=== PATIENT | male | born 1975 | race Two or more races ===

== ENCOUNTER 2023-02-22 16:19 | Outpatient (AMB) | payer OTHER, SELFPAY ==
--- NOTE | 2023-02-22 16:21 | MHC.OFFWIV ---
Intake Vital Signs 02/22/23 16:23 Weight 195 lb BP 110/72 Blood Pressure Location Rt brachial Position Sitting Pulse 77 Pulse Source Pulse Oximeter Temp 97.7 F Temp Source Temporal Artery Scan Pulse Oximetry (%) 97 Intake Visit Reasons: EP, Sore throat (masked) Intake Note: Patient here because he started off with a slight cough on saturday and now has developed a sore throat. Patient Tobacco Use Status: Never used Tobacco Allergies No Known Allergies Allergy (Unverified 02/22/23 16:24) Do you need a note to return to daycare/school/sports/work: No HPI HPI Comments History of Present Illness Details This is a 48-year-old male who presents to the office today for sick visit. Patient complaining of sore throat x3 days. He reports associated odynophagia but denies dysphagia. He denies any throat swelling. He denies any fevers or chills. He denies any other URI symptoms including nasal congestion, rhinorrhea, sinus congestion, or myalgias. He denies cough. He denies any lymphadenopathy. He states his girlfriend has similar symptoms. COUNTS INCLUDE 234 BEDS AT THE [facility] Social History Patient Tobacco Use Status: Never used Tobacco Review of Systems Const All systems reviewed & are unremarkable except as noted in HPI and below Reports no additional complaints Eyes Reports no additional complaints ENT Reports no additional complaints Card Reports no additional complaints Resp Reports no additional complaints GI Reports no additional complaints Reports no additional complaints Musc Reports no additional complaints Skin/Breast Reports system reviewed and no additional complaints, except as documented Neuro Reports no additional complaints Psych Reports no additional complaints Endo Reports no additional complaints Cesar/Lymph Reports no additional complaints Aller/Immun Reports no additional complaints Physical Exam Vital Signs: Last Vital Signs Temp 97.7 F 02/22/23 16:23 Pulse 77 02/22/23 16:23 BP 110/72 02/22/23 16:23 Pulse Ox 97 02/22/23 16:23 Const General: cooperative, healthy appearing, no acute distress and well developed Orientation/consciousness: patient oriented x3 HEENT Head: Yes normal to inspection Ears: hearing grossly normal bilaterally General nose exam: Normal external nose present Face and sinus: Yes normal facial exam Mouth: Normal oral and palatal mucosa present Throat: No abnormal tonsil, No peritonsillar mass, Yes posterior oropharynx abnormal (Mild posterior oropharyngeal erythema), No uvula laterally displaced and No uvular edema Eyes General: appearance normal, both eyes and all related structures Pupils: Equal, round and reactive pupils present EOM: EOMs intact bilaterally Resp Effort & Inspection: normal respiratory effort and no respiratory distress Auscultation: clear to auscultation bilaterally Cardio Rate: regular rate Rhythm: regular rhythm Heart sounds: no gallops, no murmurs and no rubs Peripheral pulses: Peripheral pulses 2+ throughout GI Inspection: No distended Palpation (GI): Soft to palpation and nontender Auscultation: normal bowel sounds Skin General skin exam: no rashes or lesions noted Neuro General: patient oriented x3 Cranial nerves: Yes CN's II-XII intact bilaterally and Yes Equal, round and reactive pupils present Gait exam (Neuro): Normal gait present Motor exam (neuro): 5/5 motor strength present throughout Extrem General: Yes normal to inspection, Yes full ROM and Yes no clubbing, cyanosis or edema Psych Appearance: grossly normal Mental Status: mental status grossly normal Results AMB Rapid Strep AMB Rapid Strep Negative Last Edit by SHONA Jade on 02/22/23 16:34 Results Reviewed Results Reviewed: Laboratory Last Values Strep Scn [facility] Negative 02/22/23 16:33 Assessment & Plan Assessment & Plan (1) Viral pharyngitis: Code(s): J02.9 - Acute pharyngitis, unspecified Plan: Patient presenting with signs and symptoms most consistent with acute viral pharyngitis. Rapid strep test is negative. No evidence of peritonsillar abscess. Patient's vital signs are stable and he is overall nontoxic appearing. Physical exam is benign with the exception of mild posterior pharyngeal erythema. Patient is safe to be discharged home. Recommended symptomatic management including rest, increased fluids, advil/tylenol for pain/fever, and over the counter throat lozenges. Patient advised to follow up here or go to the emergency room for worsening/persistent symptoms. Patient verbalizes understanding and he is in agreement with the plan. Orders: Orders AMB Rapid Strep Screen Today Z13.9 - Encounter for screening, unspecified Coding Level of Care Code Est Pt Level 3 (20837) Diagnoses Viral pharyngitis J02.9
[2023-02-22 16:23] VITALS: BP 110/72; PULSE 77; TEMP 36.5; O2SAT 97
== END 2023-02-22 16:49 | disposition home or self-care (01) ==
PROVIDERS: PCP Internal Medicine Endocrinology, Diabetes & Metabolism; Visit Provider Physician Assistant Medical
DX: J02.9 Acute pharyngitis, unspecified (principal)
CPT/HCPCS: 87880; 99213